=== PATIENT | female | born 2000 | race Caucasian/White ===

== ENCOUNTER 2018-01-13 16:51 | Emergency (ER) | payer SELFPAY ==
[2018-01-13 17:00] VITALS: BP 127/67
[2018-01-13 17:08] VITALS: BMI 23.8
--- NOTE | 2018-01-13 17:47 | DR.GENAD ---
HPI - PCP Primary Care Physician: NFD - Complaint/Symptoms Chief Complaint Doctors Comments: History as stated. Patient denies any cardiopulmonary disease. LMP 11 November normal Chief Complaint:: PT C/O I WAS LAYING DOWN TODAY AND THAT SHE HAD A PULSE IN HER ABD AROUND HER BELLY BUTTON AND THAT SHE READ ON LINE IT COULD BE AN ANNURYSM, PT DENIES PAIN AND STATES THIS HAPPENED LAST WEEK AND ITS BIGGER TODAY . - Source History Provided: Patient - Mode of Arrival Mode of Arrival: Ambulatory - Timing Onset of Chief Complaint: 01/13/18 PMH - PMH Past Medical History: No Past Surgical History: Yes Past Surgical History Comment: ECTOPIC - Family History History of Family Medical Conditions: No - Social History Does patient currently use any type of tobacco product: Yes Have you used tobacco products in the last 12 months: Yes Type of Tobacco Use: Cigarettes How many years tobacco product used: 4 Does any household member use tobacco: No Alcohol Use: None Do you use any recreational Drugs:: No Lives With: Family Lives Where: Home - infectious screening In the last 2 months have you had wt loss of >10#?: NO Have you had fever, night sweats or hemotysis?: No Have you traveled outside the country in the last 6 months?: No Isolation: Standard ROS - Review of Systems Eyes: No Symptoms Reported ENTM: No Symptoms Reported Respiratoy: No Symptoms Reported Cardiovascular: No Symptoms Reported Gastrointestinal/Abdominal: No Symptoms Reported, Other (hyperactive) Genitourinary: See HPI Neurological: No Symptoms Reported Musculoskeletal: No Symptoms Reported Integumentary: No Symptoms Reported Hematologic/Lymphatic: No Symptoms Reported Endocrine: No Symptoms Reported Psychiatric: No Symptoms Reported All Other Systems: Reviewed and Negative PE - Vital Signs Vitals: Temperature 97.0 F Pulse Rate 83 Respiratory Rate 18 Blood Pressure 127/67 O2 Sat by Pulse Oximetry 97 - General Limitations: No Limitations General Appearance: Alert, In No Apparent Distress - Head Head Exam: Normal Inspection, Atraumatic - Eyes Eye exam: Normal Appearance, PERRL, EOMI - ENT ENT Exam: Normal Exam External Ear Exam: Normal External Inspection TM/Canal Exam: Bilateral Normal Nose Exam: Normal Nose Exam Mouth Exam: Normal Inspection, Drooling Throat Exam: Normal Inspection - Neck Neck Exam: Normal Inspection, Full ROM - Chest Chest Inspection: Normal Inspection - Respiratory Respiratory Exam: Normal Lung Sounds Bilat Respiratory Exam: Bilateral Clear to Auscultation - Cardiovascular Cardiovascular Exam: Regular Rate, Normal Rhythm - Abdominal Exam Abdominal Exam: Normal Inspection, Tenderness (suprapubic), Hyperactive Bowel Sounds Abdominal Tenderness: Suprapubic - Extremities Extremities Exam: Normal Inspection, Full ROM - Back Back Exam: Normal Inspection, Full ROM - Neurologic Neurological Exam: Alert, Oriented X3, CN II-XII Intact - Psychiatric Psychiatric Exam: Normal Affect, Normal Mood - Skin Skin Exam: Warm, Dry, Intact Course - Reevaluation 1st: Unchanged - Education/Counseling Educated On: Treatment, Diagnosis ROR - Labs Reviewed Laboratory Results Reviewed?: Yes (Leuk +,Ket 2+) Laboratory: HCG, Qual Negative <10 mIU/mL 01/13/18 18:00 Specimen Type Clean catch urine 01/13/18 18:18 Urine Color Yellow (YELLOW) 01/13/18 18:18 Urine Appearance Clear (CLEAR) 01/13/18 18:18 Urine pH 5.0 (5.0 - 8.0) 01/13/18 18:18 Ur Specific Plummer 1.025 (1.000-1.030) 01/13/18 18:18 Urine Protein Negative (NEGATIVE) 01/13/18 18:18 Urine Glucose (UA) Negative (NEGATIVE) 01/13/18 18:18 Urine Ketones 2+ (NEGATIVE) 01/13/18 18:18 Urine Occult Blood Negative (NEGATIVE) 01/13/18 18:18 Urine Nitrite Negative (NEGATIVE) 01/13/18 18:18 Urine Bilirubin Negative (NEGATIVE) 01/13/18 18:18 Urine Urobilinogen Normal (NORMAL) 01/13/18 18:18 Ur Leukocyte Esterase 1+ (NEGATIVE) 01/13/18 18:18 Urine RBC 0-2 /HPF (NONE SEEN) 01/13/18 18:18 Urine WBC 0-2 /HPF (NONE SEEN) 01/13/18 18:18 Ur Squamous Epith Cells Few /HPF (NEGATIVE) 01/13/18 18:18 Urine Bacteria 2+ /HPF (NEGATIVE) 01/13/18 18:18 Ur Culture Indicated? No/not indicated 01/13/18 18:18 - Diagnosis Discharge Problem: UTI (urinary tract infection), Mild dehydration - Discharge Plan Condition: Stable - Follow ups/Referrals Follow ups/Referrals: ,Misc [Primary Care Provider] - 3 days - Instructions
[2018-01-13 18:31] LABS: SERUM PREGNANCY TEST, QUAL NEGATIVE <10 mIU/mL
[2018-01-13 18:34] LABS: BILIRUBIN,URINE NEGATIVE (NEGATIVE); BLOOD/HEMOGLOBIN,URINE NEGATIVE (NEGATIVE); GLUCOSE, URINE NEGATIVE (NEGATIVE); KETONES,URINE 2+ (NEGATIVE); LEUKOCYTE ESTERASE ,URINE 1+ (NEGATIVE); NITRITES,URINE NEGATIVE (NEGATIVE); PROTEIN,URINE NEGATIVE (NEGATIVE); UROBILINOGEN,URINE NORMAL (NORMAL)
[2018-01-13 18:48] LABS: APPEARANCE,URINE CLEAR (CLEAR); COLOR,URINE YELLOW (YELLOW)
[2018-01-13 18:49] LABS: BACTERIA,URINE 2+ /HPF (NEGATIVE); RBC,URINE 0-2 /HPF (NONE SEEN); SQUAMOUS EPITHELIAL CELL,UR FEW /HPF (NEGATIVE)
[2018-01-13] MEDS ORDERED: BACTRIM DS TAB PO ONE (19:06)
[2018-01-13] MEDS ORDERED: BACTRIM DS TAB PO SCH (20:00)
== END 2018-01-13 19:10 | disposition home or self-care (01) ==
LOC: ER 17:07
DX: N39.0 Urinary tract infection, site not specified (principal); E86.0 Dehydration
CPT/HCPCS: 36415; 81001; 84703; 99282